=== PATIENT | male | born 1945 | race Caucasian/White ===

== ENCOUNTER 2016-07-23 11:31 | Inpatient (IN) | payer MEDICARE ==
[~2016-07-23] VITALS: Ht 177.8 cm; Wt 150.0 kg
[~2016-07-23 11:31] MED LIST: ANAS1TAB PO; ARMO60TA PO; DUTA1CAP PO; GABA300C5 PO; LISI20TA PO; OMEG100037 PO; TIZA4CAP3 PO; TRAM50TA PO; VITA400C5 PO
[2016-07-23] MEDS ORDERED: PROPOFOL 200 MG/20 ML AMP IV ONE (12:00)
[2016-07-23] MEDS ORDERED: LACTATED RINGER'S 1000 ML INJ 2,000 ML IV ONE (12:00)
[2016-07-23] MEDS ORDERED: ePHEDrine/NS 25 MG/5 ML SYR IV ONE (12:00)
[2016-07-23] MEDS ORDERED: ONDANSETRON HCL 4 MG/2 ML VIAL IV PUSH ONE (12:00)
[2016-07-23] MEDS ORDERED: PHENYLEPH/NS 1000 MCG/10 ML SYR IV ONE (12:00)
[2016-07-23] MEDS ORDERED: NORMOSOL R INJ 3,000 ML IV ONE (12:00)
[2016-07-23] MEDS ORDERED: SODIUM CHLORID 0.9% 500 ML INJ 500 ML IV ONE (12:00)
[2016-07-23] MEDS ORDERED: NEOSTIGMINE METHYLSULFATE 10 MG/10 ML VIAL IV PUSH ONE (12:00)
[2016-07-23] MEDS ORDERED: ceFAZolin 2 GM PREMIX 50 ML IV SCH (12:15)
[2016-07-23 12:45] VITALS: BP 142/63; PULSE 61; RESP 18; TEMP 98.6; O2SAT 96
[2016-07-23 13:34] LABS: INTERNATIONAL NORMALIZED RATIO 1.1 RATIO; PROTHROMBIN TIME - PATIENT 11.9 SEC (9.8-11.6)
[2016-07-23] MEDS ORDERED: ACETAMINOPHEN 1000 MG/100 ML VIAL IV ONE (13:45)
[2016-07-23] MEDS ORDERED: fentaNYL CITRATE 250 MCG/5 ML AMP ONE ×2 (13:45→17:51)
[2016-07-23] MEDS ORDERED: FAMOTIDINE 20 MG/2 ML VIAL ONE (13:45)
[2016-07-23] MEDS ORDERED: ceFAZolin INJ 1,000 MG VIAL IV ONE ×2 (14:10→18:10)
[2016-07-23 19:40] LABS: BLOOD GAS BASE EXCESS -4.4 mmol/L (-2-2); BLOOD GAS CARBOXYHEMOGLOBIN 1.5 % (0-4); BLOOD GAS HCO3 20 mmol/L (22-26); BLOOD GAS METHEMOGLOBIN 1.9 % (0-2); BLOOD GAS O2 HGB SATURATION 95 % (90-100); BLOOD GAS PCO2 35 mmHg (38-42); BLOOD GAS PO2 182 mmHg (61-120); BLOOD GAS TOTAL HGB 13.1 G/DL (12.0-16.0); CRITICAL VALUE NO; TEMP CORR TO 98.6
[2016-07-23 19:41] LABS: OXYGEN DEVICE OR; STAT NO
--- NOTE | 2016-07-23 20:04 | EKG ---
Date Performed: 07/23/2016 Time Performed: 11:55:26 PTAGE: 71 years EKG: Sinus rhythm MARKED LEFT AXIS DEVIATION ABNORMAL ECG PREVIOUS TRACING : 04/28/2013 08.08 Compared to prior tracing no significant change DOCTOR: Mamie Hernandez Interpretating Date/Time 07/23/2016 20:03:56
[2016-07-23] MEDS ORDERED: DO NOT ADM ANY ANTICOAGULANT DRUGS PRN (20:45)
[2016-07-23] MEDS ORDERED: TAMSULOSIN PO SCH (21:00)
[2016-07-23] MEDS ORDERED: DUTASTERIDE TAMSULOSIN PO SCH (21:00)
[2016-07-23] MEDS: ACETAMINOPHEN 1000 MG/100 ML VIAL IV SCH (21:00)
[2016-07-23] MEDS: SODIUM CHLOR 0.9% 1000 ML INJ 1,000 ML IV SCH (21:00)
[2016-07-23] MEDS ORDERED: PANTOPRAZOLE SODIUM 40 MG VIAL IV PUSH SCH (21:00)
[2016-07-23] MEDS ORDERED: DUTASTERIDE PO SCH (21:00)
[2016-07-23] MEDS ORDERED: DOCUSATE SODIUM 100 MG CAP PO SCH (21:00)
[2016-07-23] MEDS ORDERED: *morphine SULFATE 8 MG/ML PERIprocedure ONLY ONE ×2 (21:04→21:30)
--- NOTE | 2016-07-23 21:05 | RADRPT ---
EXAM DATE/TIME: 07/23/2016 20:39 [facility] COMPARISON: No previous studies available for comparison. INDICATIONS : Central line placement. MEDICAL HISTORY : None. SURGICAL HISTORY : None. ENCOUNTER: Initial ACUITY: 1 day PAIN SCORE: 0/10 LOCATION: Bilateral chest FINDINGS: A single AP portable erect view of the chest was obtained and demonstrates a right internal jugular c entral venous line with the tip projected over the superior vena cava. There is no visualized right p neumothorax however there is subcutaneous emphysema over the right lateral and upper chest wall. Ther e is a linear area of low density projected along the left side of the aorta. The patient is mildly r otated. The heart size appears mildly enlarged. No confluent infiltrates are identified. The bony tho rax is otherwise intact in appearance. CONCLUSION: 1. Right internal jugular central venous line with tip projected over superior vena cava. 2. No visualized pneumothorax or there is subcutaneous emphysema over the right upper and lateral [address] wall and is of concern for an occult pneumothorax. 3. Linear area of low density projected along the left side of the aorta of unclear significance. The patient is rotated to the left. Zbigniew Brown MD on July 23, 2016 at 21:00 Board Certified Radiologist. This report was verified electronically.
[2016-07-23] MEDS ORDERED: LABETALOL HCL 100 MG/20 ML VIAL IV PUSH PRN (22:00)
--- NOTE | 2016-07-23 22:13 | PD.CONS ---
[facility] Service Critical Care Medicine Consult Requested By Dr. Li Reason for Consult Critical care management Primary Care Physician Eduardo Mccann MD History of Present Illness 71-year-old male with a past medical history of hypertension, hypothyroidism, BPH, obstructive sleep apnea on home CPAP for whom critical care medicine is consulted postoperatively following robot assisted right nephrectomy due to right renal mass. Anesthesia records are reviewed. He was intubated by video laryngoscopy without apparent difficulty. He received 4300 of crystalloid, 500 packed red cells, EBL was 1 L. Urine output was 450. I have evaluated him in PACU where he is on 5 L facemask and is being transitioned to 3 L nasal cannula. He is mildly hypertensive with 152/65, complaining of pain. Urine output was 150 in his first hour in PACU. Past Family Social History Allergies: Coded Allergies: No Known Allergies (Unverified , 07/23/16) Past Medical History Hypertension Obesity Obstructive sleep apnea on home C Pap Hypothyroidism BPH Erectile dysfunction Peripheral neuropathy Gout Past Surgical History Bilateral knee arthroplasty Left knee arthroscopy Right gluteal mass resection in March 2011 C4 through C7 cervical fusion Colonoscopy 2013 Reported Medications Dutasteride/Tamulosin 0.5/0.4 mg po qhs Lisinopril 20/12.5 1/2 tab po daily Gabapentin 300 mg po tid Anastrozole 1 mg po , Tizanidine 4 mg po tid Tramadol 50 mg po daily Maple 3 fatty acids 1000 mg po daily Thyroid 60 mg po daily Vitamin E 400 units po daily Family History Mother has history of cancer. He was unable to elaborate on this. Social History Lifetime nonsmoker No history of alcohol or illicit drug use He is and has a live-in girlfriend Physical Exam Vital Signs Vital Signs Date Time Temp Pulse Resp B/P Pulse Ox O2 Delivery O2 Flow Rate FiO2 07/23/16 21:30 75 16 153/68 100 Nasal Cannula 3 07/23/16 21:15 77 15 155/70 100 Simple Mask 5 07/23/16 21:00 78 15 152/63 100 Simple Mask 10 07/23/16 20:45 99.0 71 17 151/71 100 Simple Mask 10 07/23/16 12:45 98.6 61 18 142/63 96 Physical Exam Drips: 0.9 NaCl at 150 mL per hour GENERAL: Well-nourished, well-developed obese male sitting up in PACU bed. SKIN: Warm and dry. HEAD: Atraumatic. Normocephalic. EYES: Pupils equal and round, 2 mm reactive bilaterally. No scleral icterus. No injection or drainage. ENT: No nasal bleeding or discharge. Mucous membranes pink and moist. NECK: Thick neck. Trachea midline. No JVD. CARDIOVASCULAR: Regular rate and rhythm, sinus rhythm on monitor. No murmurs rubs or gallops. RESPIRATORY: No accessory muscle use. Clear to auscultation. Breath sounds equal bilaterally. On 3 L nasal cannula GASTROINTESTINAL: Trocar sites with no drainage. Dressing in place right upper quadrant is clean dry and intact. Abdomen tender. Bowel sounds hypoactive. : Mild scrotal swelling, Astorga in place with light yellow urine output. MUSCULOSKELETAL: Extremities without clubbing, cyanosis, or edema. No obvious deformities. NEUROLOGICAL: Awake and alert, sleepy post general anesthesia, slow to answer questions, difficulty recalling detail PMH. No obvious cranial nerve deficits. Motor grossly within normal limits, moving all extremities. Normal speech. Laboratory Laboratory Tests Test 07/23/16 07/23/16 12:55 19:15 Prothrombin Time 11.9 Prothromb Time International 1.1 Ratio Blood Type O POSITIVE Antibody Screen NEGATIVE Crossmatch Leukocyte-Reduced Red Blood Cells Blood Bank Comment Blood Gas Puncture Site DRAWN IN OR Blood Gas Patient Temperature 98.6 Blood Gas HCO3 20 Blood Gas Base Excess -4.4 Blood Gas Oxygen Saturation 95 Arterial Blood pH 7.37 Arterial Blood Partial 35 Pressure CO2 Arterial Blood Partial 182 Pressure O2 Arterial Blood Oxygen Content 18.0 Arterial Blood 1.5 Carboxyhemoglobin Arterial Blood Methemoglobin 1.9 Blood Gas Hemoglobin 13.1 Oxygen Delivery Device OR Assessment and Plan Assessment and Plan NEURO: History of cervical fusion Peripheral neuropathy Gabapentin 300 mg by mouth 3 times a day Zanaflex 4 mg by mouth 3 times a day Oxycodone and seen for pain. Morphine as needed for breakthrough pain. Ofirmev 1000 mg IV every 6 hours RESP: Obstructive sleep apnea Incentive spirometry every hour awake. Ordered patient to use his home C Pap machine which he has brought with him. CV: Hypertension Monitor hemodynamics Labetalol when necessary systolic blood pressure greater than 165 Hold HCTZ/lisinopril home meds immediately postoperatively until assess renal function. GI: Obesity Nothing by mouth except meds. Diet advancement per urology. Colace/senna bid for bowel regimen. FEN/RENAL/UROLOGY: Right renal mass status post right robot-assisted nephrectomy (Dr. Li, ) BPH Erectile dysfunction Final pathology dictation is pending. Anastrazole 1 mg po Friday and Postoperative BMP pending Astorga in place. Monitor intake and output. Monitor electrolytes. Replace electrolyte as indicated per electrolyte replacement protocol 0.9 NaCl at 150 mL per hour Home med dutasteride 0.5 mg /tamulosin 0.4 mg daily therapeutic interchange per pharmacy ID: Received perioperative cefazolin. Monitor for signs and symptoms of infection. HEME: EBL 1 L. Received 2 units packed red cells in OR 07/23/16. Postoperative CBC pending. ENDO: Hypothyroidism [place] Thyroid 60 mg by mouth daily has been continued. PROPH: SCDs for DVT prophylaxis. Pharmacologic DVT prophylaxis as soon as appropriate from urology standpoint. Protonix 40 mg IV daily for stress ulcer prophylaxis. ACCESS: Left radial art line placed in OR 07/23 #1, right IJ central venous line placed in OR 07/23 #1. PT consult in am Level III consult Loreto Kiser MD July 23, 2016 22:13
[2016-07-23] MEDS ORDERED: MAGNESIUM OXIDE 400 MG TAB PO PRN (22:30)
[2016-07-23] MEDS ORDERED: MAGNESIUM SULFATE INJ 4 GM in SODIUM CHLORIDE 0.9% INJ 92 ML IV PRN (22:30)
[2016-07-23] MEDS ORDERED: POTASSIUM PHOSPHATE MONOBASIC 500 MG TAB PO/TUBE PRN (22:30)
[2016-07-23] MEDS ORDERED: POTASSIUM CHLOR 40 MEQ PREMIX 100 ML IV PRN ×2 (22:30)
[2016-07-23] MEDS ORDERED: POTASSIUM CHLORIDE 25 MEQ EFFERVESCENT TAB PO PRN (22:30)
[2016-07-23] MEDS ORDERED: POTASSIUM CHLOR 20 MEQ PREMIX 100 ML IV PRN ×2 (22:30)
[2016-07-23] MEDS ORDERED: MAGNESIUM SULFATE INJ 2 GM in SODIUM CHLORIDE 0.9% INJ 96 ML IV PRN (22:30)
[2016-07-23] MEDS ORDERED: POTASSIUM PHOSPHATE MONOBASIC 500 MG TAB PO PRN (22:30)
[2016-07-23] MEDS ORDERED: SODIUM PHOSPHATE INJ 30 MMOL in SODIUM CHLOR 0.9% 250 ML INJ 240 ML IV PRN (22:30)
[2016-07-23] MEDS ORDERED: MORPHINE SULFATE 8 MG/ML INJ ONE (23:08)
[2016-07-23 23:33] LABS: AUTOMATED NEUTROPHIL # 17.5 TH/MM3 (1.8-7.7); BASOPHIL % 0.1 % (0.0-2.0); HEMATOCRIT 39.4 % (39.0-51.0); HEMO FLAGS DIFF FINAL; LYMPH % 2.2 % (9.0-44.0); LYMPHOCYTE # 0.4 TH/MM3 (1.0-4.8); MEAN CELL VOLUME 86.4 FL (80.0-100.0); MEAN CORPUSCULAR HEMOGLOBIN 29.2 PG (27.0-34.0); MEAN CORPUSCULAR HGB CONC 33.9 % (32.0-36.0); MONO % 5.5 % (0.0-8.0); NEUT % 92.2 % (16.0-70.0); PLATELET COUNT 197 TH/MM3 (150-450); RED BLOOD COUNT 4.56 MIL/MM3 (4.50-5.90); RED CELL DISTRIBUTION WIDTH 13.6 % (11.6-17.2)
[2016-07-23 23:40] LABS: BICARBONATE 26.3 MEQ/L (21.0-32.0); POTASSIUM 4.1 MEQ/L (3.5-5.1)
[2016-07-24] VITALS (13 sets, daily range): BP systolic 131–169; BP diastolic 58–74; PULSE 55–74; RESP 13–24; TEMP 97.4–98.8; O2SAT 93–99
[2016-07-24] MEDS: MORPHINE SULFATE 4 MG/ML INJ IV PUSH PRN ×3 (01:25→12:17)
[2016-07-24] MEDS: ACETAMINOPHEN 1000 MG/100 ML VIAL IV SCH ×2 (03:36→08:08)
[2016-07-24] MEDS: SODIUM CHLOR 0.9% 1000 ML INJ 1,000 ML IV SCH ×3 (03:42→19:54)
[2016-07-24 04:25] LABS: HEMATOCRIT 36.8 % (39.0-51.0); MEAN CELL VOLUME 84.8 FL (80.0-100.0); MEAN CORPUSCULAR HEMOGLOBIN 30.4 PG (27.0-34.0); MEAN CORPUSCULAR HGB CONC 35.8 % (32.0-36.0); PLATELET COUNT 212 TH/MM3 (150-450); RED BLOOD COUNT 4.34 MIL/MM3 (4.50-5.90); RED CELL DISTRIBUTION WIDTH 13.6 % (11.6-17.2); REVIEW FLAG FINAL; WHITE BLOOD COUNT 14.3 TH/MM3 (4.0-11.0)
[2016-07-24 04:57] LABS: BICARBONATE 26.2 MEQ/L (21.0-32.0); POTASSIUM 4.3 MEQ/L (3.5-5.1)
[2016-07-24] MEDS ORDERED: MEPERIDINE HCL 25 MG/ML VIAL IM ONE (08:00)
[2016-07-24] MEDS: VITAMIN E 400 UNIT CAP PO SCH (08:08)
[2016-07-24] MEDS: THYROID 60 MG TAB PO SCH (08:08)
[2016-07-24] MEDS: DOCUSATE SODIUM 50 MG/SENNA 8.6 MG TAB PO SCH ×2 (08:08→19:54)
--- NOTE | 2016-07-24 08:27 | HHI.PR ---
Subjective Patient symptoms today c/o right upper quadrant pain, chills. But pain medication helps with pain. Denies chest pain, fevers, nausea. Denies flatus. Objective Vital Signs Vital Signs Date Time Temp Pulse Resp B/P Pulse Ox O2 Delivery O2 Flow Rate FiO2 07/24/16 07:49 26 07/24/16 06:00 58 07/24/16 05:11 13 07/24/16 04:00 59 07/24/16 04:00 98.0 59 15 139/63 99 132/60 07/24/16 02:00 73 07/24/16 00:03 98.9 71 15 158/60 97 Nasal Cannula 3 07/24/16 00:00 66 07/24/16 00:00 98.5 66 13 169/74 97 163/71 07/23/16 23:00 74 15 153/68 97 Nasal Cannula 3 07/23/16 22:00 74 15 153/68 97 Nasal Cannula 3 07/23/16 22:00 72 17 157/62 96 Nasal Cannula 3 07/23/16 21:56 6 07/23/16 21:54 17 07/23/16 21:45 98.8 80 16 155/68 97 Nasal Cannula 3 07/23/16 21:30 75 16 153/68 100 Nasal Cannula 3 07/23/16 21:15 77 15 155/70 100 Simple Mask 5 07/23/16 21:00 78 15 152/63 100 Simple Mask 10 07/23/16 20:45 99.0 71 17 151/71 100 Simple Mask 10 07/23/16 12:45 98.6 61 18 142/63 96 Result Diagram: 07/24/1640907/24/16409 Objective Remarks NAD. A/O x 3 CTAB RRR abd soft, obese, NT. dressing dry. [place] clear, yellow Ext NT. No c/c/e. EPC cuffs on and working. Medications and IVs Current Medications Medications (Trade) Dose Ordered Sig/Todd Route Start Time Stop Time Status Last Admin (Arimidex) 1 mg MoTh@09 PO 07/25/16 09:00 (Neurontin) 300 mg TID PO 07/24/16 09:00 07/24/16 08:08 ([place] Thyroid) 60 mg DAILY PO 07/24/16 09:00 07/24/16 08:08 (Zanaflex) 4 mg TID PO 07/24/16 09:00 07/24/16 08:08 (Ofirmev Inj) 1,000 mg Q6H IV 07/23/16 21:00 07/24/16 08:08 (Morphine Inj) 4 mg Q3H PRN IV PUSH 07/23/16 20:30 07/24/16 05:06 (Roxicodone) 10 mg Q4H PRN PO 07/23/16 20:30 07/24/16 06:49 Oxycodone HCl 5 mg 5 mg Q4H PRN PO 07/23/16 20:30 (Ancef Inj/NS Inj) 100 ml @ 200 mls/hr Q8H IV 07/24/16 02:00 07/24/16 01:25 (Protonix Inj) 40 mg Q24H IV PUSH 07/23/16 21:00 07/23/16 21:00 Ondansetron HCl 4 mg 4 mg Q6HR PRN IV PUSH 07/23/16 20:30 (NS 1000 ml Inj) 1,000 ml @ 150 mls/hr Q6H40M IV 07/23/16 21:00 07/24/16 03:42 (Vitamin E) 400 units DAILY PO 07/24/16 09:00 07/24/16 08:08 (Prinivil) 20 mg DAILY PO 07/24/16 09:00 (Hydrodiuril) 12.5 mg DAILY PO 07/24/16 09:00 Patient Own Medication PT OWN MED: ANTONIETTA(DUTASTERI... HS PO 07/23/16 21:00 Hold Miscellaneous Information ALL NURSING DEPARTME... UNSCH PRN .XX 07/23/16 20:45 07/24/16 20:44 (Trandate Inj) 10 mg Q4H PRN IV PUSH 07/23/16 22:00 07/24/16 00:41 Senna/Docusate Sodium 1 tab 1 tab BID PO 07/24/16 09:00 07/24/16 08:08 Potassium Chloride 100 ml @ 50 mls/hr Q2H PRN IV 07/23/16 22:30 (KCl 20 Meq Premix Inj) 100 ml @ 50 mls/hr Q2H PRN IV 07/23/16 22:30 Potassium Bicarb/ Potassium Chloride 50 meq 50 meq UNSCH PRN PO 07/23/16 22:30 Potassium Chloride 100 ml @ 25 mls/hr UNSCH PRN IV 07/23/16 22:30 Potassium Chloride 100 ml @ 50 mls/hr Q2H PRN IV 07/23/16 22:30 (Magnesium Sulfate Inj/NS Inj) 100 ml @ 50 mls/hr UNSCH PRN IV 07/23/16 22:30 Magnesium Oxide 800 mg 800 mg UNSCH PRN PO 07/23/16 22:30 (Magnesium Sulfate Inj/NS Inj) 100 ml @ 50 mls/hr UNSCH PRN IV 07/23/16 22:30 Potassium Phosphate 2000 mg 2,000 mg Q4H PRN PO 07/23/16 22:30 (Sodium Phosphate Inj/NS 250 ml Inj) 250 ml @ 42 mls/hr UNSCH PRN IV 07/23/16 22:30 (K-Phos) 2,000 mg UNSCH PRN PO/TUBE 07/23/16 22:30 Assessment and Plan Assessment and Plan POD #1 Complicated Right Robotic Radical Nephrectomy -Continue pain control. On Oxycodone, IV Acetaminophen, Morphine -Hgb stable. Hemodynamically stable. Repeat CBC in A.M. -WBC down, likely inflammatory reaction from surgery. On Ancef. -Good UOP, >50 ml/hr. Continue IVF 150 ml/hour. Possible d/c maloney tomorrow morning. -Creatinine slight elevated as expected. Repeat BMP in a.m. -Clear liquid diet. Continue Protonix, Zofran, Colace -Lovenox 30 mg daily for DVT prophylaxis -PT/OT. OOB today. -Appreciate Client Support Manager input. Herbert Li MD July 24, 2016 08:27
[2016-07-24] MEDS ORDERED: GABAPENTIN 300 MG CAP PO SCH (09:00)
[2016-07-24] MEDS ORDERED: NON-FORMULARY DRUG (Omega-3 Fatty Acids (Fish Oil 1000 mg) 1 CAP) PO SCH (09:00)
[2016-07-24] MEDS ORDERED: VITAMIN E PO SCH (09:00)
[2016-07-24] MEDS ORDERED: HYDROCHLOROTHIAZIDE 25 MG TAB PO SCH (09:00)
[2016-07-24] MEDS ORDERED: LISINOPRIL 20 MG TAB PO SCH (09:00)
[2016-07-24] MEDS ORDERED: NON-FORMULARY DRUG (Lisinopril-Hctz 0.5 TAB) PO SCH (09:00)
[2016-07-24] MEDS: PANTOPRAZOLE SOD 40 MG DELAYED RELEASE TAB PO SCH (12:05)
[2016-07-24] MEDS ORDERED: NITROGLYCERIN 2% OINT 1 GM PACKET TOPICAL PRN (14:45)
[2016-07-24] MEDS ORDERED: RESP: ALBUTEROL 2.5 MG/3 ML NEB (PRN) NEB (14:45)
--- NOTE | 2016-07-24 14:48 | HHI.CCPN ---
Subjective Remarks/Hospital Course 71-year-old male with a past medical history of hypertension, hypothyroidism, BPH, obstructive sleep apnea on home CPAP for whom critical care medicine is consulted postoperatively following robot assisted right nephrectomy due to right renal mass. Anesthesia records are reviewed. He was intubated by video laryngoscopy without apparent difficulty. He received 4300 of crystalloid, 500 packed red cells, EBL was 1 L. Urine output was 450. I have evaluated him in PACU where he is on 5 L facemask and is being transitioned to 3 L nasal cannula. He is mildly hypertensive with 152/65, complaining of pain. Urine output was 150 in his first hour in PACU. Subjective 07/24 - Currently afebrile. On room air. Pain is controlled on current regimen. No bowel movement. Adequate urine output postoperative. He walked hallways today. Objective Vital Signs Date Time Temp Pulse Resp B/P Pulse Ox O2 Delivery O2 Flow Rate FiO2 07/24/16 14:00 58 07/24/16 12:22 23 07/24/16 12:00 97.4 131/58 97 Arterial Line 07/24/16 07:00 Room Air 07/24/16 00:03 3 Intake and Output 07/23/16 07/23/16 07/24/16 08:00 16:00 00:00 Intake Total 4900 ml Output Total 1600 ml Balance 3300 ml Result Diagram: 07/24/16 0410 07/24/16 0410 Imaging Last Impressions Chest X-Ray 07/23/16 0000 Signed Impressions: Service Date/Time: Saturday, July 23, 2016 20:39 - CONCLUSION: 1. Right internal jugular central venous line with tip projected over superior vena cava. 2. No visualized pneumothorax or there is subcutaneous emphysema over the right upper and lateral chest wall and is of concern for an occult pneumothorax. 3. Linear area of low density projected along the left side of the aorta of unclear significance. The patient is rotated to the left. Zbigniew Brown MD Objective Remarks GENERAL: 71-year-old male, morbidly obese currently sitting in bed in no acute distress SKIN: Warm and dry. No rash HEAD: Atraumatic. Normocephalic. EYES: Pupils equal and round, 3 mm reactive bilaterally. No scleral icterus. No injection or drainage. ENT: No nasal bleeding or discharge. Mucous membranes pink and moist. NECK: Supple. Obese neck. Trachea midline. No JVD. CARDIOVASCULAR: [place], RR. S1, S2 no S4 without murmurs, clicks, rubs RESPIRATORY: No accessory muscle use. Clear to auscultation. Breath sounds equal and symmetrical bilaterally. GASTROINTESTINAL: Trocar sites with no drainage or erythema/covered with 5 Band- Aids. Dressing in place right upper quadrant is 2 x 2 centimeter drainage that is dry.. Tender to deep palpation. Voluntary guarding throughout all 4 quadrants. No rigidity.. Hypoactive bowel sounds : Minimal scrotal swelling, Astorga in place with light yellow urine output. MUSCULOSKELETAL: Extremities without any significant peripheral edema. No obvious deformities. NEUROLOGICAL: Awake and alert,. Cranial nerves II through grossly intact. Strength is equal and symmetrical. Normal sensation. Normal speech. Urinary Catheter: Yes Assessment to: Continue Astorga insert reason: Prolonged Immobilization Vascular Central Line Catheter: Yes Assessment to: Continue Date of Insertion: July 23, 2016 Line: Central Venous Catheter Side: Right Location: Internal, Jugular A/P Assessment and Plan NEURO/PSYCH: History of cervical fusion C4 through C7 Peripheral neuropathy Gabapentin 400 mg twice a day. On 300 mg 3 times a day at home Zanaflex 4 mg by mouth 3 times a day Oxycodone 5-10 mg every 4 hours when necessary for pain. Morphine 4 mg IV every 3 hours as needed for breakthrough pain. Acetaminophen 1 g by mouth every 6 hours scheduled per . RESP: Obstructive sleep apnea Possible right pneumothorax Chest x-ray ordered stat Nasal cannula to maintain saturations greater than equal to 92% Incentive spirometry while awake On home CPAP at night -12 cm H2O CV: Hypertension Dyslipidemia Monitor hemodynamics Currently normal saline at 150 cc an hour per Hydralazine/Nitropaste when necessary systolic blood pressure greater than 160 due to bradycardia Continue to hold HCTZ/lisinopril home meds immediately postoperatively until assess renal function. On pressure 1 g daily at home for disability. Currently on hold GI: Obesity On clear liquid diet per urology Protonix for GI prophylaxis Temitope-Colace bid for bowel regimen. FEN/RENAL/UROLOGY: Right renal mass status post complicated right robot-assisted radical nephrectomy (Dr. Li, 07/23/16) BPH Erectile dysfunction Final pathology dictation is pending. Anastrazole 1 mg po Friday and has been resumed Postoperative BMP pending Astorga in place. Monitor intake and output. Monitor electrolytes. Replace electrolyte as indicated per electrolyte replacement protocol Home med dutasteride 0.5 mg /tamulosin 0.4 mg daily therapeutic interchange per pharmacy ID: Currently on Ancef 1 g IV every 8 hours per Monitor for signs and symptoms of infection. HEME: Leukocytosis EBL 1 L. Received 2 units packed red cells in OR 07/23/16. A.m. CBC were ordered ENDO: Hypothyroidism History of gout [place] Thyroid 60 mg by mouth daily has been continued. Access - Right IJ CVL 07/23 in OR day #2 - Left radial art line 07/23 in OR day #2 Prophylaxis - GI - Protonix - DVT - SCD/pharmacological prophylaxis when okay with neurology Level II Rosendo Lee MD July 24, 2016 14:48
[2016-07-24] MEDS ORDERED: ACETAMINOPHEN 500 MG CPLT PO SCH (15:00)
--- NOTE | 2016-07-24 15:09 | RADRPT ---
EXAM DATE/TIME: 07/24/2016 14:36 [facility] COMPARISON: CHEST SINGLE AP, July 23, 2016, 20:39. INDICATIONS : Pneumothorax. MEDICAL HISTORY : None. SURGICAL HISTORY : Nephrectomy, right. ENCOUNTER: Initial ACUITY: 1 day PAIN SCORE: 8/10 LOCATION: Right Abdomen. FINDINGS: Subcutaneous emphysema is again noted, mainly on the right. No definite pneumothorax identified. A ce ntral line is again noted in satisfactory position. There is mild bilateral basilar parenchymal opaci ty which is unchanged. CONCLUSION: No pneumothorax. Marvin Pittman MD on July 24, 2016 at 15:05 Board Certified Radiologist. This report was verified electronically.
[2016-07-24] MEDS: ACETAMINOPHEN 500 MG CPLT PO SCH ×2 (15:36→20:54)
[2016-07-24] MEDS: GABAPENTIN 400 MG CAP PO SCH (19:54)
[2016-07-25] VITALS (14 sets, daily range): BP systolic 98–148; BP diastolic 52–68; PULSE 58–80; RESP 15–23; TEMP 98.2–98.9; O2SAT 96–98
[2016-07-25] MEDS: SODIUM CHLOR 0.9% 1000 ML INJ 1,000 ML IV SCH ×4 (01:44→17:30)
[2016-07-25 03:48] LABS: HEMATOCRIT 33.5 % (39.0-51.0); MEAN CELL VOLUME 86.5 FL (80.0-100.0); MEAN CORPUSCULAR HEMOGLOBIN 29.6 PG (27.0-34.0); MEAN CORPUSCULAR HGB CONC 34.2 % (32.0-36.0); PLATELET COUNT 165 TH/MM3 (150-450); RED BLOOD COUNT 3.87 MIL/MM3 (4.50-5.90); RED CELL DISTRIBUTION WIDTH 13.4 % (11.6-17.2); REVIEW FLAG FINAL; WHITE BLOOD COUNT 9.5 TH/MM3 (4.0-11.0)
[2016-07-25 03:53] LABS: BICARBONATE 28.1 MEQ/L (21.0-32.0); POTASSIUM 3.9 MEQ/L (3.5-5.1)
[2016-07-25] MEDS: ACETAMINOPHEN 500 MG CPLT PO SCH ×3 (05:34→20:44)
[2016-07-25] MEDS: hydrALAZINE HCL 20 MG/ML VIAL IV PUSH PRN (07:19)
--- NOTE | 2016-07-25 07:56 | HHI.CCPN ---
Subjective Remarks/Hospital Course 71-year-old male with a past medical history of hypertension, hypothyroidism, BPH, obstructive sleep apnea on home CPAP for whom critical care medicine is consulted postoperatively following robot assisted right nephrectomy due to right renal mass. Anesthesia records are reviewed. He was intubated by video laryngoscopy without apparent difficulty. He received 4300 of crystalloid, 500 packed red cells, EBL was 1 L. Urine output was 450. I have evaluated him in PACU where he is on 5 L facemask and is being transitioned to 3 L nasal cannula. He is mildly hypertensive with 152/65, complaining of pain. Urine output was 150 in his first hour in PACU. 07/24 - Currently afebrile. On room air. Pain is controlled on current regimen. No bowel movement. Adequate urine output postoperative. He walked hallways today. Subjective 07/25: Mildly hypertensive currently. Abdominal pain improved with current pain regimen. No bowel movement. Continues to have adequate urine output. Plan for Astorga to be taken out today. Objective Vital Signs Date Time Temp Pulse Resp B/P Pulse Ox O2 Delivery O2 Flow Rate FiO2 07/25/16 06:00 63 07/25/16 04:47 16 07/25/16 04:00 98.2 112/56 98 07/24/16 19:00 Room Air 07/24/16 00:03 3 Intake and Output 07/24/16 07/24/16 07/25/16 08:00 16:00 00:00 Intake Total 1555 ml 1533 ml 1661 ml Output Total 470 ml 450 ml 1600 ml Balance 1085 ml 1083 ml 61 ml Result Diagram: 07/25/16 0330 07/25/16 0330 Imaging Last Impressions Chest X-Ray 07/24/16 0000 Signed Impressions: Service Date/Time: Sunday, July 24, 2016 14:36 - CONCLUSION: No pneumothorax. Marvin Pittman MD Objective Remarks GENERAL: 71-year-old male, morbidly obese currently sitting in bed in no acute distress SKIN: Warm and dry. No rash HEAD: Atraumatic. Normocephalic. EYES: Pupils equal and round, 3 mm reactive bilaterally. No scleral icterus. No injection or drainage. ENT: No nasal bleeding or discharge. Mucous membranes pink and moist. NECK: Supple. Obese neck. Trachea midline. No JVD. CARDIOVASCULAR: Bradycardiac, RR. S1, S2 no S4 without murmurs, clicks, rubs RESPIRATORY: [place] to auscultation. Breath sounds equal and symmetrical bilaterally. GASTROINTESTINAL: Slightly protuberant. Trocar sites with no drainage or erythema/covered with 5 Band-Aids. Dressing in place right upper quadrant is 2 x 2 centimeter drainage that is dry.. Tender to deep palpation. Voluntary guarding throughout all 4 quadrants. No rigidity. Hypoactive bowel sounds : Minimal scrotal swelling, [place] in place with light yellow urine output. MUSCULOSKELETAL: Extremities without any significant peripheral edema. No obvious deformities. NEUROLOGICAL: Awake and alert,. Cranial nerves II through grossly intact. Strength is equal and symmetrical. Normal sensation. Normal speech. Date of Insertion: July 23, 2016 Line: Central Venous Catheter Side: Right Location: Internal, Jugular A/P Assessment and Plan NEURO/PSYCH: History of cervical fusion C4 through C7 Peripheral neuropathy Gabapentin 400 mg twice a day. On 300 mg 3 times a day at home Zanaflex 4 mg by mouth 3 times a day Oxycodone 5-10 mg every 4 hours when necessary for pain. Morphine 4 mg IV every 3 hours as needed for breakthrough pain. Acetaminophen 1 g by mouth every 8 hours scheduled per . RESP: Obstructive sleep apnea Possible right pneumothorax Chest x-ray ordered stat Nasal cannula to maintain saturations greater than equal to 92% and currently at 2 L Incentive spirometry while awake On home CPAP at night -12 cm H2O CV: Hypertension Dyslipidemia Sinus bradycardia Monitor hemodynamics with arterial line. Likely can discontinue today Currently normal saline at 150 cc an hour per Hydralazine/Nitropaste when necessary systolic blood pressure greater than 160 due to bradycardia. As needed Labetalol only if heart rate greater than 65 Continue to hold HCTZ/lisinopril home meds immediately postoperatively until assess renal function. Onfish oil 1 g daily at home for elevated lipids. Currently on hold and resume when clinically indicated GI: Obesity On clear liquid diet per urology Protonix for GI prophylaxis Temitope-Colace bid for bowel regimen. Lactulose 30 cc 1 now FEN/RENAL/UROLOGY: Right renal mass status post complicated right robot-assisted radical nephrectomy (Dr. Li, 07/23/16) BPH Erectile dysfunction Final pathology dictation is pending. Anastrazole 1 mg po Friday and has been resumed Postoperative BMP pending Astorga in place. Monitor intake and output. Monitor electrolytes. Replace electrolyte as indicated per electrolyte replacement protocol Home med dutasteride 0.5 mg /tamulosin 0.4 mg daily therapeutic interchange per pharmacy Stated had difficult time with extraction of Astorga during last hospitalization ID: Currently on Ancef 1 g IV every 8 hours per Monitor for signs and symptoms of infection. HEME: Normocytic anemia EBL 1 L. Received 2 units packed red cells in OR 07/23/17. A.m. CBC were ordered ENDO: Hypothyroidism History of gout [place] Thyroid 60 mg by mouth daily has been continued. Access - Right IJ CVL 07/23 in OR day #3 - Left radial art line 07/23 in OR day #3 likely to be removed today Prophylaxis - GI - Protonix - DVT - SCD/pharmacological prophylaxis when okay with urology Level II Rosendo Lee MD July 25, 2016 07:56
[2016-07-25] MEDS ORDERED: LACTULOSE SYRUP 20 GM/30 ML CUP PO ONE (08:00)
[2016-07-25] MEDS ORDERED: LABETALOL HCL 100 MG/20 ML VIAL IV PUSH PRN (08:00)
[2016-07-25] MEDS: DOCUSATE SODIUM 50 MG/SENNA 8.6 MG TAB PO SCH ×2 (08:16→20:08)
[2016-07-25] MEDS: THYROID 60 MG TAB PO SCH (08:16)
[2016-07-25] MEDS: PANTOPRAZOLE SOD 40 MG DELAYED RELEASE TAB PO SCH (08:16)
[2016-07-25] MEDS: VITAMIN E 400 UNIT CAP PO SCH (08:16)
[2016-07-25] MEDS: GABAPENTIN 400 MG CAP PO SCH ×2 (08:17→20:08)
[2016-07-25] MEDS ORDERED: ANASTROZOLE 1 MG TAB PO SCH (09:00)
--- NOTE | 2016-07-25 19:37 | HHI.PR ---
Subjective Patient symptoms today Seen around 1:30 today. ambulated in hallways today. tolerating clears. c/o lower abdominal pain but improved. Controlled adequately. Denies flatus. Denies CP/SOB/F/C. Has not voided yet but denies urge. Objective Vital Signs Vital Signs Date Time Temp Pulse Resp B/P Pulse Ox O2 Delivery O2 Flow Rate FiO2 07/25/16 18:00 80 07/25/16 16:00 98.5 67 20 123/68 98 07/25/16 16:00 67 07/25/16 14:00 64 07/25/16 12:00 76 07/25/16 12:00 98.5 76 23 137/63 98 07/25/16 10:00 70 07/25/16 08:50 97 Nasal Cannula 2.00 07/25/16 08:00 70 07/25/16 08:00 98.9 70 23 148/65 98 07/25/16 07:00 98 Nasal Cannula 2.00 07/25/16 06:00 63 07/25/16 04:47 16 07/25/16 04:00 58 07/25/16 04:00 98.2 63 16 112/56 98 07/25/16 02:00 59 07/25/16 00:00 66 07/25/16 00:00 98.4 66 15 98/52 97 07/24/16 22:40 21 07/24/16 22:00 74 07/24/16 20:00 70 07/24/16 20:00 98.7 70 24 132/61 93 Intake & Output 07/25/16 07/25/16 07:00 19:00 Intake Total 2889 ml 2050 ml Output Total 2600 ml 1100 ml Balance 289 ml 950 ml Intake Oral 720 ml 960 ml IV Total 2169 ml 1090 ml Output Urine Total 2600 ml 1100 ml # Bowel Movements 0 0 Result Diagram: 07/25/16 0330 07/25/16 0330 Objective Remarks NAD. A/O x 3 CTAB RRR abd soft, obese, NT. dressing dry. Ext NT. No c/c/e. EPC cuffs on and working. Medications and IVs Current Medications Medications (Trade) Dose Ordered Sig/Todd Route Start Time Stop Time Status Last Admin (Arimidex) 1 mg MoTh@09 PO 07/25/16 09:00 07/25/16 08:16 (Zanaflex) 4 mg TID PO 07/24/16 09:00 07/25/16 17:29 (Morphine Inj) 4 mg Q3H PRN IV PUSH 07/23/16 20:30 07/24/16 12:17 (Roxicodone) 10 mg Q4H PRN PO 07/23/16 20:30 07/25/16 17:29 Oxycodone HCl 5 mg 5 mg Q4H PRN PO 07/23/16 20:30 (Ancef Inj/NS Inj) 100 ml @ 200 mls/hr Q8H IV 07/24/16 02:00 07/25/16 17:29 Ondansetron HCl 4 mg 4 mg Q6HR PRN IV PUSH 07/23/16 20:30 (NS 1000 ml Inj) 1,000 ml @ 150 mls/hr Q6H40M IV 07/23/16 21:00 07/25/16 17:30 (Vitamin E) 400 units DAILY PO 07/24/16 09:00 07/25/16 08:16 (Prinivil) 20 mg DAILY PO 07/24/16 09:00 (Hydrodiuril) 12.5 mg DAILY PO 07/24/16 09:00 Patient Own Medication PT OWN MED: ANTONIETTA(DUTASTERI... HS PO 07/23/16 21:00 Hold Senna/Docusate Sodium 1 tab 1 tab BID PO 07/24/16 09:00 07/25/16 08:16 Potassium Chloride 100 ml @ 50 mls/hr Q2H PRN IV 07/23/16 22:30 (KCl 20 Meq Premix Inj) 100 ml @ 50 mls/hr Q2H PRN IV 07/23/16 22:30 Potassium Bicarb/ Potassium Chloride 50 meq 50 meq UNSCH PRN PO 07/23/16 22:30 Potassium Chloride 100 ml @ 25 mls/hr UNSCH PRN IV 07/23/16 22:30 Potassium Chloride 100 ml @ 50 mls/hr Q2H PRN IV 07/23/16 22:30 (Magnesium Sulfate Inj/NS Inj) 100 ml @ 50 mls/hr UNSCH PRN IV 07/23/16 22:30 Magnesium Oxide 800 mg 800 mg UNSCH PRN PO 07/23/16 22:30 (Magnesium Sulfate Inj/NS Inj) 100 ml @ 50 mls/hr UNSCH PRN IV 07/23/16 22:30 Potassium Phosphate 2000 mg 2,000 mg Q4H PRN PO 07/23/16 22:30 (Sodium Phosphate Inj/NS 250 ml Inj) 250 ml @ 42 mls/hr UNSCH PRN IV 07/23/16 22:30 (K-Phos) 2,000 mg UNSCH PRN PO/TUBE 07/23/16 22:30 (Protonix) 40 mg DAILY PO 07/24/16 12:00 07/25/16 08:16 (Neurontin) 400 mg BID PO 07/24/16 21:00 07/25/16 08:17 (Apresoline Inj) 10 mg Q1HR PRN IV PUSH 07/24/16 14:45 07/25/16 07:19 (Nitroglycerin 2% Oint) 2 inch Q6HR PRN TOPICAL 07/24/16 14:45 (Tylenol) 1,000 mg Q8HR PO 07/24/16 16:00 07/25/16 12:18 (Trandate Inj) 10 mg Q1HR PRN IV PUSH 07/25/16 08:00 ([place] Thyroid) 60 mg DAILY@06 PO 07/26/16 06:00 Assessment and Plan Assessment and Plan POD #2 Complicated Right Robotic Radical Nephrectomy -Continue pain control. On Oxycodone, IV Acetaminophen, Morphine -Hgb down slightly. likely dilutional. Hemodynamically stable. Repeat CBC in A.M. -WBC down, likely inflammatory reaction from surgery. On Ancef. -Good UOP, >50 ml/hr. Decrease IVF. -Creatinine stabilized. Repeat BMP in a.m. -Clear liquid diet. Continue Protonix, Zofran, Colace -Lovenox 30 mg daily for DVT prophylaxis -PT/OT. Ambulate. -Appreciate [employer] input. Herbert Li MD July 25, 2016 19:37
[2016-07-25] MEDS ORDERED: POLYETHYLENE GLYCOL 17 GM PKG PO SCH (20:45)
[2016-07-26] VITALS (14 sets, daily range): BP systolic 105–175; BP diastolic 51–77; PULSE 58–80; RESP 15–22; TEMP 98.1–98.9; O2SAT 93–97
[2016-07-26] MEDS: MORPHINE SULFATE 4 MG/ML INJ IV PUSH PRN ×2 (00:07→03:23)
[2016-07-26] MEDS: ACETAMINOPHEN 500 MG CPLT PO SCH ×3 (00:13→21:22)
[2016-07-26] MEDS: hydrALAZINE HCL 20 MG/ML VIAL IV PUSH PRN ×2 (01:06→10:13)
[2016-07-26] MEDS: SODIUM CHLOR 0.9% 1000 ML INJ 1,000 ML IV SCH ×3 (02:20→17:02)
[2016-07-26 03:36] LABS: HEMATOCRIT 34.3 % (39.0-51.0); MEAN CELL VOLUME 87.2 FL (80.0-100.0); MEAN CORPUSCULAR HEMOGLOBIN 29.8 PG (27.0-34.0); MEAN CORPUSCULAR HGB CONC 34.2 % (32.0-36.0); PLATELET COUNT 153 TH/MM3 (150-450); RED BLOOD COUNT 3.93 MIL/MM3 (4.50-5.90); RED CELL DISTRIBUTION WIDTH 13.4 % (11.6-17.2); REVIEW FLAG FINAL; WHITE BLOOD COUNT 9.8 TH/MM3 (4.0-11.0)
[2016-07-26 03:57] LABS: BICARBONATE 25.1 MEQ/L (21.0-32.0); POTASSIUM 3.6 MEQ/L (3.5-5.1)
[2016-07-26] MEDS: THYROID 60 MG TAB PO SCH (06:11)
--- NOTE | 2016-07-26 08:17 | HHI.CCPN ---
Subjective Remarks/Hospital Course 71-year-old male with a past medical history of hypertension, hypothyroidism, BPH, obstructive sleep apnea on home CPAP for whom critical care medicine is consulted postoperatively following robot assisted right nephrectomy due to right renal mass. Anesthesia records are reviewed. He was intubated by video laryngoscopy without apparent difficulty. He received 4300 of crystalloid, 500 packed red cells, EBL was 1 L. Urine output was 450. I have evaluated him in PACU where he is on 5 L facemask and is being transitioned to 3 L nasal cannula. He is mildly hypertensive with 152/65, complaining of pain. Urine output was 150 in his first hour in PACU. 07/24 - Currently afebrile. On room air. Pain is controlled on current regimen. No bowel movement. Adequate urine output postoperative. He walked hallways today. 07/25: Mildly hypertensive currently. Abdominal pain improved with current pain regimen. No bowel movement. Continues to have adequate urine output. Plan for Astorga to be taken out today. Subjective 07/26: Afebrile. [place] catheter removed yesterday. Start on MiraLAX to do no bowel movement since admission. Continues to have adequate urine output. Creatinine stable Objective Vital Signs Date Time Temp Pulse Resp B/P Pulse Ox O2 Delivery O2 Flow Rate FiO2 07/26/16 07:00 97 Room Air 07/26/16 06:00 64 07/26/16 05:03 17 07/26/16 04:00 98.4 163/73 07/25/16 19:52 2.00 Intake and Output 07/25/16 07/25/16 07/26/16 08:00 16:00 00:00 Intake Total 1228 ml 2050 ml 988 ml Output Total 1000 ml 1100 ml 500 ml Balance 228 ml 950 ml 488 ml Result Diagram: 07/26/16 0328 07/26/16 0328 Imaging Last Impressions Chest X-Ray 07/24/16 0000 Signed Impressions: Service Date/Time: Sunday, July 24, 2016 14:36 - CONCLUSION: No pneumothorax. Marvin Pittman MD Objective Remarks GENERAL: 71-year-old male, morbidly obese currently sitting in bed in no acute distress SKIN: Warm and dry. No rash HEAD: Atraumatic. Normocephalic. EYES: Pupils equal and round, 3 mm reactive bilaterally. No scleral icterus. No injection or drainage. ENT: No nasal bleeding or discharge. Mucous membranes pink and moist. NECK: Supple. Obese neck. Trachea midline. No JVD. CARDIOVASCULAR: RRR. S1, S2 no S4 without murmurs, clicks, rubs RESPIRATORY: NClear to auscultation. Breath sounds equal and symmetrical bilaterally. GASTROINTESTINAL: Slightly protuberant. Trocar sites with no drainage or erythema/covered with 5 Band-Aids. Dressing in place right upper quadrant is 2 x 2 centimeter drainage that is dry.. Tender to deep palpation. Voluntary guarding throughout all 4 quadrants. No rigidity. Hypoactive bowel sounds : Minimal scrotal swelling. External meatus normal MUSCULOSKELETAL: Extremities without any significant peripheral edema. No obvious deformities. NEUROLOGICAL: Awake and alert,. Cranial nerves II through grossly intact. Strength is equal and symmetrical. Normal sensation. Normal speech. Urinary Catheter: No Assessment to: Continue Vascular Central Line Catheter: Yes Assessment to: Continue Date of Insertion: July 23, 2016 Line: Central Venous Catheter Side: Right Location: Internal, Jugular A/P Assessment and Plan NEURO/PSYCH: History of cervical fusion C4 through C7 Peripheral neuropathy Gabapentin 400 mg twice a day. On 300 mg 3 times a day at home Zanaflex 4 mg by mouth 3 times a day Oxycodone 5-10 mg every 4 hours when necessary for pain. Morphine 4 mg IV every 3 hours as needed for breakthrough pain. Acetaminophen 1 g by mouth every 8 hours scheduled per . RESP: Obstructive sleep apnea Negative pneumothorax on chest x-ray 07/24. Nasal cannula to maintain saturations greater than equal to 92% and currently at 2 L Incentive spirometry while awake On home CPAP at night -12 cm H2O CV: Hypertension Dyslipidemia Sinus bradycardia Arterial line discontinued Currently normal saline at 10 cc an hour per Hydralazine/Nitropaste when necessary systolic blood pressure greater than 160 due to bradycardia. As needed Labetalol only if heart rate greater than 65 Serum Prinivil 5 mg twice a day. On hydrochlorothiazide/lisinopril 20/25 one half tablet daily at home Onfish oil 1 g daily at home for elevated lipids. Currently on hold and resume when clinically indicated GI: Obesity On clear liquid diet per urology. Grams per them Protonix for GI prophylaxis Temitope-Colace bid for bowel regimen. MiraLAX twice a day and Senokot daily added. Lactulose 30 cc 1 now FEN/RENAL/UROLOGY: Right renal mass status post complicated right robot-assisted radical nephrectomy (Dr. Li, 07/23/16) BPH Erectile dysfunction Final pathology dictation is pending. Anastrazole 1 mg po Friday and has been resumed Postoperative BMP pending Astorga in place. Monitor intake and output. Monitor electrolytes. Replace electrolyte as indicated per electrolyte replacement protocol Home med dutasteride 0.5 mg /tamulosin 0.4 mg daily therapeutic interchange per pharmacy Stated had difficult time with extraction of Astorga during last hospitalization it okay today ID: Currently on Ancef 1 g IV every 8 hours per Monitor for signs and symptoms of infection. HEME: Normocytic anemia EBL 1 L. Received 2 units packed red cells in OR 07/23/16. A.m. CBC were ordered ENDO: Hypothyroidism History of gout [place] Thyroid 60 mg by mouth daily has been continued. Access - Right IJ CVL 07/23 in OR day #4 - Left radial art line 07/23 in OR day # 4 to be discontinued today Prophylaxis - GI - Protonix - DVT - SCD/Lovenox Level II Rosendo Lee MD July 26, 2016 08:17
[2016-07-26] MEDS: POLYETHYLENE GLYCOL 17 GM PKG PO SCH ×2 (08:55→21:00)
[2016-07-26] MEDS: ENOXAPARIN SODIUM 30 MG/0.3 ML SYRINGE SQ SCH (08:55)
[2016-07-26] MEDS: GABAPENTIN 400 MG CAP PO SCH ×2 (08:56→21:22)
[2016-07-26] MEDS: PANTOPRAZOLE SOD 40 MG DELAYED RELEASE TAB PO SCH (08:56)
[2016-07-26] MEDS: VITAMIN E 400 UNIT CAP PO SCH (08:56)
[2016-07-26] MEDS: DOCUSATE SODIUM 50 MG/SENNA 8.6 MG TAB PO SCH ×3 (08:56→21:40)
[2016-07-26] MEDS: LISINOPRIL 5 MG TAB PO SCH ×2 (08:56→21:22)
[2016-07-26] MEDS ORDERED: POTASSIUM CHLORIDE 20 MEQ CONTROLLED RELEASE TAB PO ONE (09:00)
[2016-07-26] MEDS ORDERED: GLYCERIN ADULT 2 GM SUPP RECTAL PRN (09:00)
[2016-07-26] MEDS ORDERED: LACTULOSE SYRUP 20 GM/30 ML CUP PO SCH (09:00)
[2016-07-26] MEDS ORDERED: GLYCERIN ADULT 2 GM SUPP RECTAL ONE (09:00)
[2016-07-26] MEDS: ONDANSETRON HCL 4 MG/2 ML VIAL IV PUSH PRN (10:53)
[2016-07-26] MEDS ORDERED: BISACODYL 10 MG SUPP RECTAL ONE (12:45)
[2016-07-26] MEDS ORDERED: METHYLNALTREXONE BROMIDE 12 MG/0.6 ML VIAL SQ ONE (16:00)
[2016-07-26] MEDS: LACTULOSE SYRUP 20 GM/30 ML CUP PO SCH ×2 (17:01→21:23)
[2016-07-27] VITALS (10 sets, daily range): BP systolic 112–158; BP diastolic 56–70; PULSE 52–74; RESP 14–22; TEMP 96.2–98.8; O2SAT 93–97
[2016-07-27] MEDS: SODIUM CHLOR 0.9% 1000 ML INJ 1,000 ML IV SCH (00:35)
[2016-07-27 03:38] LABS: HEMATOCRIT 29.3 % (39.0-51.0); MEAN CELL VOLUME 86.9 FL (80.0-100.0); MEAN CORPUSCULAR HEMOGLOBIN 30.9 PG (27.0-34.0); MEAN CORPUSCULAR HGB CONC 35.6 % (32.0-36.0); PLATELET COUNT 163 TH/MM3 (150-450); RED BLOOD COUNT 3.37 MIL/MM3 (4.50-5.90); RED CELL DISTRIBUTION WIDTH 13.2 % (11.6-17.2); REVIEW FLAG FINAL; WHITE BLOOD COUNT 8.9 TH/MM3 (4.0-11.0)
[2016-07-27 04:07] LABS: POTASSIUM 3.7 MEQ/L (3.5-5.1)
[2016-07-27] MEDS: LACTULOSE SYRUP 20 GM/30 ML CUP PO SCH ×2 (06:00→12:00)
[2016-07-27] MEDS: ACETAMINOPHEN 500 MG CPLT PO SCH (06:13)
[2016-07-27] MEDS: THYROID 60 MG TAB PO SCH (06:13)
[2016-07-27] MEDS: DOCUSATE SODIUM 50 MG/SENNA 8.6 MG TAB PO SCH ×2 (07:40→21:00)
[2016-07-27] MEDS: LISINOPRIL 5 MG TAB PO SCH ×2 (07:41→21:15)
[2016-07-27] MEDS: POLYETHYLENE GLYCOL 17 GM PKG PO SCH ×2 (07:41→21:14)
[2016-07-27] MEDS: ENOXAPARIN SODIUM 30 MG/0.3 ML SYRINGE SQ SCH (07:41)
[2016-07-27] MEDS: VITAMIN E 400 UNIT CAP PO SCH (07:41)
[2016-07-27] MEDS: PANTOPRAZOLE SOD 40 MG DELAYED RELEASE TAB PO SCH (07:41)
[2016-07-27] MEDS: GABAPENTIN 400 MG CAP PO SCH ×2 (07:41→21:00)
[2016-07-27] MEDS: ONDANSETRON HCL 4 MG/2 ML VIAL IV PUSH PRN ×2 (07:47→21:15)
--- NOTE | 2016-07-27 11:04 | HHI.PR ---
Subjective Patient symptoms today had a bowel movement, passing flatus. Feels better. Pain improved. Denies SOB/CP /F/C. Been OOB. Voiding on own. Starting to get appetite Objective Vital Signs Vital Signs Date Time Temp Pulse Resp B/P Pulse Ox O2 Delivery O2 Flow Rate FiO2 07/27/16 10:00 63 07/27/16 08:00 62 07/27/16 08:00 98.8 62 14 158/70 93 07/27/16 07:00 95 Room Air 07/27/16 06:00 62 07/27/16 04:00 58 07/27/16 04:00 98.0 58 16 150/67 94 07/27/16 02:00 63 07/27/16 00:00 74 07/27/16 00:00 98.7 74 21 125/58 97 07/26/16 22:00 70 07/26/16 21:30 97 21 07/26/16 20:00 98.9 58 22 126/60 97 07/26/16 20:00 58 07/26/16 19:00 95 Room Air 07/26/16 18:00 64 07/26/16 16:00 70 07/26/16 16:00 98.6 70 19 105/51 93 07/26/16 14:00 60 07/26/16 12:00 98.6 73 19 150/65 93 07/26/16 12:00 73 Intake & Output 07/27/16 07/27/16 07:00 19:00 Intake Total 2428 ml Balance 2428 ml Intake Oral 1200 ml IV Total 1228 ml # Voids 6 # Bowel Movements 4 Result Diagram: 07/27/16 0323 07/27/16 0323 Objective Remarks NAD. A/O x 3 CTAB RRR abd soft, obese, NT. inc c/d/i Ext NT. No c/c/e. EPC cuffs on and working. Medications and IVs Current Medications Medications (Trade) Dose Ordered Sig/Todd Route Start Time Stop Time Status Last Admin (Arimidex) 1 mg MoTh@09 PO 07/25/16 09:00 07/25/16 08:16 (Zanaflex) 4 mg TID PO 07/24/16 09:00 07/27/16 07:41 (Morphine Inj) 4 mg Q3H PRN IV PUSH 07/23/16 20:30 07/26/16 03:23 (Roxicodone) 10 mg Q4H PRN PO 07/23/16 20:30 07/27/16 06:52 (Roxicodone) 5 mg Q4H PRN PO 07/23/16 20:30 (Zofran Inj) 4 mg Q6HR PRN IV PUSH 07/23/16 20:30 07/27/16 07:47 (Vitamin E) 400 units DAILY PO 07/24/16 09:00 07/27/16 07:41 (Prinivil) 20 mg DAILY PO 07/24/16 09:00 (Hydrodiuril) 12.5 mg DAILY PO 07/24/16 09:00 Patient Own Medication PT OWN MED: ANTONIETTA(DUTASTERI... HS PO 07/23/16 21:00 Hold Senna/Docusate Sodium 1 tab 1 tab BID PO 07/24/16 09:00 07/27/16 07:40 Potassium Chloride 100 ml @ 50 mls/hr Q2H PRN IV 07/23/16 22:30 (KCl 20 Meq Premix Inj) 100 ml @ 50 mls/hr Q2H PRN IV 07/23/16 22:30 Potassium Bicarb/ Potassium Chloride 50 meq 50 meq UNSCH PRN PO 07/23/16 22:30 Potassium Chloride 100 ml @ 25 mls/hr UNSCH PRN IV 07/23/16 22:30 Potassium Chloride 100 ml @ 50 mls/hr Q2H PRN IV 07/23/16 22:30 (Magnesium Sulfate Inj/NS Inj) 100 ml @ 50 mls/hr UNSCH PRN IV 07/23/16 22:30 Magnesium Oxide 800 mg 800 mg UNSCH PRN PO 07/23/16 22:30 (Magnesium Sulfate Inj/NS Inj) 100 ml @ 50 mls/hr UNSCH PRN IV 07/23/16 22:30 Potassium Phosphate 2000 mg 2,000 mg Q4H PRN PO 07/23/16 22:30 (Sodium Phosphate Inj/NS 250 ml Inj) 250 ml @ 42 mls/hr UNSCH PRN IV 07/23/16 22:30 (K-Phos) 2,000 mg UNSCH PRN PO/TUBE 07/23/16 22:30 (Protonix) 40 mg DAILY PO 07/24/16 12:00 07/27/16 07:41 (Neurontin) 400 mg BID PO 07/24/16 21:00 07/27/16 07:41 (Apresoline Inj) 10 mg Q1HR PRN IV PUSH 07/24/16 14:45 07/26/16 10:13 (Nitroglycerin 2% Oint) 2 inch Q6HR PRN TOPICAL 07/24/16 14:45 (Tylenol) 1,000 mg Q8HR PO 07/24/16 16:00 07/27/16 06:13 (Trandate Inj) 10 mg Q1HR PRN IV PUSH 07/25/16 08:00 07/26/16 06:11 ([place] Thyroid) 60 mg DAILY@06 PO 07/26/16 06:00 07/27/16 06:13 (Miralax) 17 gm BID PO 07/26/16 09:00 07/26/16 08:55 (Prinivil) 5 mg Q12HR PO 07/26/16 09:00 07/27/16 07:41 (Glycerin Adult Supp) 2 gm DAILY PRN RECTAL 07/26/16 09:00 (Lovenox Inj) 30 mg Q24H SQ 07/26/16 09:00 07/27/16 07:41 (Lactulose Liq) 30 ml Q6HR PO 07/26/16 18:00 07/26/16 17:01 Assessment and Plan Assessment and Plan POD #4 Complicated Right Robotic Radical Nephrectomy -d/c central line -hep lock -Advance diet -Ambulate, IS -Possible d/c home tomorrow. Herbert Li MD July 27, 2016 11:04
[2016-07-27] MEDS ORDERED: oxyCODONE/ACETAMINOPHEN 5 MG/325 MG TAB PO PRN (11:15)
--- NOTE | 2016-07-27 14:28 | HHI.CCPN ---
Subjective Remarks/Hospital Course 71-year-old male with a past medical history of hypertension, hypothyroidism, BPH, obstructive sleep apnea on home CPAP for whom critical care medicine is consulted postoperatively following robot assisted right nephrectomy due to right renal mass. Anesthesia records are reviewed. He was intubated by video laryngoscopy without apparent difficulty. He received 4300 of crystalloid, 500 packed red cells, EBL was 1 L. Urine output was 450. I have evaluated him in PACU where he is on 5 L facemask and is being transitioned to 3 L nasal cannula. He is mildly hypertensive with 152/65, complaining of pain. Urine output was 150 in his first hour in PACU. 07/24 - Currently afebrile. On room air. Pain is controlled on current regimen. No bowel movement. Adequate urine output postoperative. He walked hallways today. 07/25: Mildly hypertensive currently. Abdominal pain improved with current pain regimen. No bowel movement. Continues to have adequate urine output. Plan for Astorga to be taken out today. 07/26: Afebrile. [place] catheter removed yesterday. Start on MiraLAX to do no bowel movement since admission. Continues to have adequate urine output. Creatinine stable Subjective 07/27: Afebrile. Blood pressure control. Positive BM. Central line discontinued. Objective Vital Signs Date Time Temp Pulse Resp B/P Pulse Ox O2 Delivery O2 Flow Rate FiO2 07/27/16 14:00 61 07/27/16 12:00 98.8 22 118/56 95 07/27/16 07:00 Room Air 07/26/16 21:30 21 07/25/16 19:52 2.00 Intake and Output 07/26/16 07/26/16 07/27/16 08:00 16:00 00:00 Intake Total 645 ml 1702 ml 1198 ml Output Total 1000 ml 600 ml Balance -355 ml 1102 ml 1198 ml Result Diagram: 07/27/16 0323 07/27/16 0323 Imaging Last Impressions Chest X-Ray 07/24/16 0000 Signed Impressions: Service Date/Time: Sunday, July 24, 2016 14:36 - CONCLUSION: No pneumothorax. Marvin Pittman MD Objective Remarks GENERAL: 71-year-old male, morbidly obese currently sitting in bed in no acute distress SKIN: Warm and dry. No rash HEAD: Atraumatic. Normocephalic. EYES: Pupils equal and round, 3 mm reactive bilaterally. No scleral icterus. No injection or drainage. ENT: No nasal bleeding or discharge. Mucous membranes pink and moist. NECK: Supple. Obese neck. Trachea midline. No JVD. CARDIOVASCULAR: RRR. S1, S2 no S4 without murmurs, clicks, rubs RESPIRATORY: NClear to auscultation. Breath sounds equal and symmetrical bilaterally. GASTROINTESTINAL: Slightly protuberant. Trocar sites with no drainage or erythema/covered with 5 Band-Aids. Dressing in place right upper quadrant is 2 x 2 centimeter drainage that is dry.. Tender to deep palpation. Voluntary guarding throughout all 4 quadrants. No rigidity. Hypoactive bowel sounds : Minimal scrotal swelling. External meatus normal MUSCULOSKELETAL: Extremities without any significant peripheral edema. No obvious deformities. NEUROLOGICAL: Awake and alert,. Cranial nerves II through grossly intact. Strength is equal and symmetrical. Normal sensation. Normal speech. Urinary Catheter: No Assessment to: Continue Vascular Central Line Catheter: Yes Assessment to: Remove Date of Insertion: July 23, 2016 Date of Removal: July 27, 2016 Line: Central Venous Catheter Side: Right Location: Internal, Jugular A/P Assessment and Plan NEURO/PSYCH: History of cervical fusion C4 through C7 Peripheral neuropathy Gabapentin 400 mg twice a day. On 300 mg 3 times a day at home Zanaflex 4 mg by mouth 3 times a day Percocet 5/35 one to 2 tablets every 4 hours necessary for pain. Morphine 4 mg IV every 3 hours as needed for breakthrough pain. Acetaminophen 1 g by mouth every 8 hours scheduled per discontinued today RESP: Obstructive sleep apnea Negative pneumothorax on chest x-ray 07/24. Nasal cannula to maintain saturations greater than equal to 92% and currently at 2 L Incentive spirometry while awake On home CPAP at night -12 cm H2O CV: Hypertension Dyslipidemia Sinus bradycardia Arterial line discontinued Normal saline discontinued Hydralazine/Nitropaste when necessary systolic blood pressure greater than 160 due to bradycardia. As needed Labetalol only if heart rate greater than 65 Resumed Prinivil 5 mg twice a day. On hydrochlorothiazide/lisinopril 20/25 one half tablet daily at home Onfish oil 1 g daily at home for elevated lipids. Currently on hold and resume when clinically indicated GI: Obesity Constipation On clear liquid diet per urology. Advance per urology Protonix for GI prophylaxis Temitope-Colace bid for bowel regimen. MiraLAX twice a day and Senokot daily added. 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 Li, 07/23/16) BPH Erectile dysfunction Final pathology dictation revealed clear cell renal cell carcinoma stage [id number] as above Anastrazole 1 mg po Friday and has been resumed Astorga removed 07/25. Monitor intake and output. Monitor electrolytes. Replace electrolyte as indicated per electrolyte replacement protocol Home med dutasteride 0.5 mg /tamulosin 0.4 mg daily therapeutic interchange per pharmacy Stated had difficult time with extraction of Astorga during last hospitalization it okay today ID: Currently on Ancef 1 g IV every 8 hours per Monitor for signs and symptoms of infection. HEME: Normocytic anemia EBL 1 L. Received 2 units packed red cells in OR 07/23/16. No active bleeding. No indications for transfusion of blood products at this time ENDO: Hypothyroidism History of gout [place] Thyroid 60 mg by mouth daily has been continued. Access - Right IJ CVL 07/23 in OR day #5 be discontinued 07/27 - Left radial art line 07/23 in OR day # 4 to be discontinued 07/26 Prophylaxis - GI - Protonix - DVT - SCD/Lovenox Level II Patient likely to be discharged in AM. We'll sign off. Call if questions arise. Rosendo Lee MD July 27, 2016 14:28
[2016-07-27] MEDS: oxyCODONE/ACETAMINOPHEN 5 MG/325 MG TAB PO PRN ×2 (15:33→21:19)
[2016-07-28] VITALS: BP_SYST 106; BP_SYST 134; BP_DIAS 53; BP_DIAS 87; PULSE 57; RESP 18; TEMP 97.7; O2SAT 94; O2SAT 96
[2016-07-28] MEDS: ONDANSETRON HCL 4 MG/2 ML VIAL IV PUSH PRN ×2 (03:49→10:09)
[2016-07-28] MEDS: oxyCODONE/ACETAMINOPHEN 5 MG/325 MG TAB PO PRN ×2 (03:49→10:09)
[2016-07-28] MEDS: THYROID 60 MG TAB PO SCH (06:28)
[2016-07-28 08:00] VITALS: BP 120/58; PULSE 55; RESP 17; TEMP 97.4; O2SAT 96
[2016-07-28] MEDS ORDERED: OXYC1TAB63 PO (08:14)
[2016-07-28] MEDS ORDERED: POLY17S PO (08:14)
[2016-07-28] MEDS ORDERED: CEPH-461 PO (08:16)
--- NOTE | 2016-07-28 08:27 | HHI.PR ---
Subjective Patient symptoms today feels good, pain control. passing flatus. tolerating regular diet. Denies CP/F/C /SOB Objective Vital Signs Vital Signs Date Time Temp Pulse Resp B/P Pulse Ox O2 Delivery O2 Flow Rate FiO2 07/28/16 00:00 97.7 57 18 106/53 96 07/27/16 20:00 98.4 62 20 112/58 97 07/27/16 16:00 96.2 52 16 140/65 94 07/27/16 14:00 61 07/27/16 12:00 98.8 64 22 118/56 95 07/27/16 12:00 64 07/27/16 10:00 63 Intake & Output 07/28/16 07/28/16 07:00 19:00 # Voids 5 # Bowel Movements 0 Result Diagram: 07/27/1632207/27/16322 Objective Remarks NAD. A/O x 3 CTAB RRR abd soft, obese, NT. inc c/d/i Ext NT. No c/c/e. EPC cuffs on and working. Medications and IVs Current Medications Medications (Trade) Dose Ordered Sig/Todd Route Start Time Stop Time Status Last Admin (Arimidex) 1 mg MoTh@09 PO 07/25/16 09:00 07/25/16 08:16 (Zanaflex) 4 mg TID PO 07/24/16 09:00 07/27/16 18:44 (Morphine Inj) 4 mg Q3H PRN IV PUSH 07/23/16 20:30 07/26/16 03:23 (Zofran Inj) 4 mg Q6HR PRN IV PUSH 07/23/16 20:30 07/28/16 03:49 (Vitamin E) 400 units DAILY PO 07/24/16 09:00 07/27/16 07:41 (Prinivil) 20 mg DAILY PO 07/24/16 09:00 (Hydrodiuril) 12.5 mg DAILY PO 07/24/16 09:00 Patient Own Medication PT OWN MED: ANTONIETTA(DUTASTERI... HS PO 07/23/16 21:00 Hold (Temitope-Colace) 1 tab BID PO 07/24/16 09:00 07/27/16 21:00 (Protonix) 40 mg DAILY PO 07/24/16 12:00 07/27/16 07:41 (Neurontin) 400 mg BID PO 07/24/16 21:00 07/27/16 21:00 (Apresoline Inj) 10 mg Q1HR PRN IV PUSH 07/24/16 14:45 07/26/16 10:13 (Nitroglycerin 2% Oint) 2 inch Q6HR PRN TOPICAL 07/24/16 14:45 (Trandate Inj) 10 mg Q1HR PRN IV PUSH 07/25/16 08:00 07/26/16 06:11 ([place] Thyroid) 60 mg DAILY@06 PO 07/26/16 06:00 07/28/16 06:28 (Miralax) 17 gm BID PO 07/26/16 09:00 07/27/16 21:14 (Prinivil) 5 mg Q12HR PO 07/26/16 09:00 07/27/16 21:15 (Glycerin Adult Supp) 2 gm DAILY PRN RECTAL 07/26/16 09:00 (Lovenox Inj) 30 mg Q24H SQ 07/26/16 09:00 07/27/16 07:41 (Percocet 5-325 Mg) 2 tab Q4H PRN PO 07/27/16 11:15 07/28/16 03:49 (Percocet 5-325 Mg) 1 tab Q4H PRN PO 07/27/16 11:15 Assessment and Plan Assessment and Plan POD #5Complicated Right Robotic Radical Nephrectomy -doing well. -d/c home today. -F/U in 2 weeks. Herbert Li MD July 28, 2016 08:27
[2016-07-28] MEDS: GABAPENTIN 400 MG CAP PO SCH (09:00)
[2016-07-28] MEDS: PANTOPRAZOLE SOD 40 MG DELAYED RELEASE TAB PO SCH (10:08)
[2016-07-28] MEDS: VITAMIN E 400 UNIT CAP PO SCH (10:08)
[2016-07-28] MEDS: LISINOPRIL 5 MG TAB PO SCH (10:08)
[2016-07-28] MEDS: DOCUSATE SODIUM 50 MG/SENNA 8.6 MG TAB PO SCH (10:09)
[2016-07-28] MEDS: POLYETHYLENE GLYCOL 17 GM PKG PO SCH (10:09)
[2016-07-28] MEDS: ENOXAPARIN SODIUM 30 MG/0.3 ML SYRINGE SQ SCH (10:09)
[2016-07-28 12:00] VITALS: BP 121/60; PULSE 57; RESP 17; TEMP 96.8; O2SAT 94
--- NOTE | 2016-07-30 12:59 | HHI.DS ---
Discharge Summary Admission Date July 23, 2016 at 23:50 Discharge Date: July 28, 2016 Admitting Diagnosis Right Renal Mass Procedures Right Robotic Radical Nephrectomy CBC/BMP: 07/27/16 0323 07/27/16 0323 Hospital Course 71 yo male was admitted following a difficult right robotic radical nephrectomy. He remained in ICU fro observation. His hemoglobin was stable throughout his stay and he was mobile starting on POD #1. However, he developed a small ileus and required Miralax and Dulcolax suppository to get his bowels moving. His pain was well controlled with Percocet. He tolerated a regular diet by POD #3. He was discharged on POD #5. Pt Condition on Discharge: Fair Discharge Disposition: Discharge Home Discharge Instructions DIET: Follow Instructions for: Heart Healthy Diet Activities you can perform: Full Weight Bearing, Shower Only-No Bath Activities to avoid: Strenuous Activity Additional Activity Instructio: No heavylifting greater than 15 lbs x 4 weeks New Medications: Cephalexin (Keflex) 750 Mg Cap 750 MG PO Q6H Infection Days 5 Ref 0 CAP Oxycodone-Acetaminophen (Oxycodone-Acetaminophen) 5-325 mg Tab 2 TAB PO Q4H PRN PAIN SCALE 5 TO 10 #30 Ref 0 TAB Polyethylene Glycol 3350 Powder (Polyethylene Glycol 3350 Powder) 17 Gm Pow 17 GM PO BID Constipation Days 10 Ref 0 PACK Continued Medications: Anastrozole (Anastrozole) 1 Mg Tab 1 MG PO M,TH Breast Cancer #30 Ref 0 TAB Dutasteride-Tamsulosin (Dutasteride-Tamsulosin) 0.5-0.4 Mg Cap 1 CAP PO HS Manage Prostate Problems #30 Ref 0 CAP Gabapentin (Gabapentin) 300 Mg Cap 300 MG PO TID #90 Ref 0 CAP Lisinopril-Hctz (Lisinopril-Hctz) 20-12.5 Mg Tab 0.5 TAB PO DAILY Blood Pressure Management #30 Ref 0 TAB [place]-3 Fatty Acids (Fish Oil 1000 mg) 1 Cap Cap 1 CAP PO DAILY Thyroid ([place] Thyroid) 60 Mg Tab 60 MG PO DAILY Thyroid Supplement #30 Ref 0 TAB Tizanidine (Tizanidine) 4 Mg Cap 4 MG PO TID Muscle Spasm Ref 0 CAP Tramadol (Tramadol) 50 Mg Tab 50 MG PO DAILY PAIN Ref 0 TAB Vitamin E (E-400) 400 Unit Cap 1 CAP PO DAILY Herbert Li MD July 30, 2016 12:59
--- NOTE | 2016-08-19 06:37 | MP ---
cc: KRISTOFER TOLENTINO MD, DANNIE E. M.D. DATE OF OPERATION 07/23/2016 PREOPERATIVE DIAGNOSIS Right renal mass. POSTOPERATIVE DIAGNOSIS Right renal mass. PROCEDURE PERFORMED Right robotic radical nephrectomy. SURGEON MD Guillermo ANESTHESIA General. COMPLICATIONS None. PREOPERATIVE ANTIBIOTICS Ancef 2 grams IV. DRAINS None. SPECIMENS Right kidney for permanent. BLOOD LOSS 100 mL. INDICATION The patient is a 71-year-old male who was found to have an incidental right renal mass. Treatment options were discussed. He elected to proceed with surgical removal via laparoscopy. The risks, benefits and alternatives were explained to the patient. The patient elected to proceed and informed consent was obtained. DETAILS OF PROCEDURE The patient properly identified, brought back to the operating room, was laid supine on the operating table. Proper time-out was performed under the direction of Anesthesiology. The patient was induced under general aesthetic. Preop antibiotics given with Ancef 2 grams IV within 4 hours prior to the procedure. The patient was then placed in left lateral decubitus position with right side up. All pressure points were padded. A stab incision was made superior and lateral on the patient's right side to the umbilicus. A Veress needle was then used to gain access to pneumoperitoneum. Under direct visualization, we then placed a 12-mm camera port to the intraabdominal cavity. There was no evidence of any intraabdominal injury including bleeding. All remaining ports were then placed under direct visualization including two 8-mm robotic ports and a 5-mm port in the midline to assist with liver retraction and two 12-mm librarian assistant ports along the midline superior and inferior to the umbilicus. On initial inspection the patient had a very large liver that was hanging over on top of the kidney. I was able to retract the liver cephalad with the long grasping retractor. At this time I then reflected the colon medially, taking down the white line of Toldt. This exposed the retroperitoneum. At this time I then kocherized the second part of the duodenum. This exposed the inferior vena cava. Of note, the patient had a large renal cyst that was medial and a significant amount of perinephric fat. I then marched inferiorly down the inferior vena cava to develop a plane between the psoas muscle and the kidney itself. The ureter and gonadal vein were easily identified. I then followed the gonadal vein and ureter up the inferior vena cava until I saw the attachment of the gonadal vein into the right IVC. This was taken with a robotic vessel sealer. I then came across the hilum of the kidney which contained two arteries and two large veins. The hilar dissection was quite difficult and initial plan was to do a partial nephrectomy but was unable to safely dissect and clamp out the arterial vessels. We did discuss with his family prior to the surgery the fact that we may not be able to do a partial nephrectomy and would remove the entire kidney which the patient did agree to if needed. Therefore, due to this difficult hilar dissection, it was decided to take the entire kidney. The artery and vein were taken separately with endovascular GI stapler. The rest of the attachments were bluntly dissected and removed with electrocautery. Once the kidney was entirely free, it was then placed in an EndoCatch bag for later removal. The renal fossa was then expect inspected. The hilum appeared to be dry as well as well as the adrenal bed. 3 grams of Naveen was then placed for hemostatic purposes. The pneumoperitoneum was then brought down to 7 mmHg. There is no evidence of any bleeding. Hemostasis was excellent. The liver retractor was removed under direct visualization. All ports were removed under direct visualization. The kidney was extracted through the right upper quadrant incision; it was closed with a running PDS. All skin incisions were closed with a Monocryl suture subcuticular. This concluded the procedure. The patient extubated and sent to Recovery in stable condition to be transferred to the floor for routine postop care. MD SOHAN Helton/KOTA /3:56 PM /6:14 AM
== END 2016-07-28 14:06 | disposition home or self-care (01) | DRG 657 ==
LOC: HSDC 11:31 → N03B 23:50 → N07B 07-27 15:39
PROVIDERS: ADMIT Urology; ATTEND Urology
PROC: 8E0W4CZ Robotic Assisted Procedure of Trunk Region, Percutaneous Endoscopic Approach (ICD-10-PCS; 2016-07-23)
PROC: 0TT04ZZ Resection of Right Kidney, Percutaneous Endoscopic Approach (ICD-10-PCS; principal; 2016-07-23 13:45)
DX: C64.1 Malignant neoplasm of right kidney, except renal pelvis (principal); Z68.42 Body mass index [BMI] 45.0-49.9, adult; G62.9 Polyneuropathy, unspecified; K56.7 Ileus, unspecified; I10 Essential (primary) hypertension; N99.61 Intraoperative hemorrhage and hematoma of a genitourinary system organ or structure complicating a genitourinary system procedure; E66.9 Obesity, unspecified; N40.0 Benign prostatic hyperplasia without lower urinary tract symptoms; G47.33 Obstructive sleep apnea (adult) (pediatric); E03.9 Hypothyroidism, unspecified; E78.5 Hyperlipidemia, unspecified; D72.829 Elevated white blood cell count, unspecified; R00.1 Bradycardia, unspecified; D64.9 Anemia, unspecified; N52.9 Male erectile dysfunction, unspecified; M10.9 Gout, unspecified; Z80.9 Family history of malignant neoplasm, unspecified; Z96.653 Presence of artificial knee joint, bilateral; Z98.1 Arthrodesis status
CPT/HCPCS: 36430; 71010; 76937; 76998; 80048; 82805; 85025; 85027; 85610; 86850; 86900; 86901; 86920; 87641; 88307; 93005; 94150; C9113; J0131; J0360; J0690; J1650; J2175; J2212; J2270; J2370; J2405; J2710; J3010; J7030; J7040; J7120; P9016